=== PATIENT | female | born 1965 | race Caucasian/White ===

== ENCOUNTER 2025-04-07 10:39 | Day surgery (SDC) | payer OTHER ==
[~2025-04-07] VITALS: Ht 162.6 cm; Wt 98.9 kg
[~2025-04-07 10:39] MED LIST: CICL6.6S TOP; LIDOCAINE 3.5% 1 ML OPHTH TOPICAL GEL OU ONE; MIDAZOLAM INJ 2 MG/2 ML VIAL As Ordered ONE; RISA150P SC; THERTAB52 PO; TIRZ12.53 SC; VALS320T2 PO; ZINC50CA4 PO
[2025-04-07] MEDS ORDERED: LR 1,000 ML IV SCH (11:00)
[2025-04-07] MEDS: LIDOCAINE 2% W/EPINEPHrine 20 ML VIAL **PRES FREE As Ordered ONE (13:13)
[2025-04-07] MEDS: TOBRADEX OPHTH OINT 3.5 GM As Ordered ONE (13:13)
[2025-04-07 14:30] VITALS: BP 175/83; TEMP 97; O2SAT 99
== END 2025-04-07 14:34 | disposition home or self-care (01) ==
LOC: M SDC 10:39
PROVIDERS: ATTEND Ophthalmology
DX: H02.834 Dermatochalasis of left upper eyelid (principal); H02.831 Dermatochalasis of right upper eyelid; I10 Essential (primary) hypertension; Z79.899 Other long term (current) drug therapy; F17.210 Nicotine dependence, cigarettes, uncomplicated; Z88.8 Allergy status to other drugs, medicaments and biological substances
CPT/HCPCS: 15822; 88300; J2250; J3010